=== PATIENT | male | born 1960 | race Caucasian/White ===

== ENCOUNTER 2017-03-04 15:15 | Observation (INO) ==
--- NOTE | 2017-03-04 15:44 | History & Physical Report ---
<Debora Puente V - Last Filed: 03/04/17 15:39> History of Present Illness Date: 03/04/17 Chief complaint: near-syncope HPI: Patient is a pleasant 57-year-old male who has a known history of non-small cell lung cancer with metastatic disease. He has been under the care of Dr. Mendoza and Dr Nupur Gerber for chemo and radiation. Today he was at the outpatient clinic receiving IV iron. This is his 2nd dose as he received an initial dose last . Following his transfusion of iron today he became hypotensive with a systolic blood pressure in the 90s. During this time he felt lightheaded and had a near syncopal episode (He denies having a LOC). He was given IV fluid 250 ML bolus, however, continued to be orthostatic. The hospitalist services will be contacted and accepted patient for outpatient admission for further evaluation and treatment. On arrival, initially. Patient was placed in inpatient status by registration staff. However, the intent is that patient is to be outpatient observation, and it is expected that his stay will be less than 2 overnights He did undergo outpatient laboratory studies earlier today as follows- WBC count 3.5, RBCs 3.38, hemoglobin 9.3, hematocrit 30.3, platelet count 108. Sodium is 143, potassium 4.0, BUN 20, creatinine 0.9. LFTs are normal. Patient does reveal that he had had a upper respiratory infection or cough as well as a fever on 02/23. He completed a course of Levaquin. He denies feeling feverish or chills. He denies having any pain, shortness of breath, chest pain, or GI complaints. We did discuss advanced directives and he does verbalize his wish to be a do not resuscitate Review of Systems Comprehensive ROS: completed and no additional positive findings except those as stated - Constitutional Constitutional: Present: fatigue PFSH Non-small cell lung cancer, squamous cell and metastatic disease. 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 Mendoza Senior Accountant Analyst-Dr. Cowan ([facility]) Exam - Constitutional Present: no acute distress - Routine HEENT Exam Head: Present: normocephalic, atraumatic Eye: Present: EOMI, PERRL ENT: Present: mucous membranes moist - Routine Neck Exam Present: supple, full ROM - Routine Respiratory Exam Present: CTA bilaterally - Routine Cardiovascular Exam Present: RRR, S1, S2, no murmur - Routine Abdominal Exam Present: soft, normoactive bowel sounds, non distended, non tender - Routine Extremities Exam Present: no edema, pulses intact, normal capillary refill - Routine Back/Spine/Pelvis Exam Back/Spine: Present: full ROM - Routine Skin Exam Present: intact, dry, warm - Routine Neurological Exam Present: alert, oriented X3, CN II-XII intact, moving all extremities, facial asymmetry, normal speech. Absent: sensory deficit, motor deficit - Routine Psychiatric Exam Present: normal affect, normal thought process Assessment and Plan (1) Near syncope Current visit: Yes Status: Acute (2) Iron deficiency anemia Current visit: Yes Status: Acute Resuscitation Status: Do Not Resuscitate Assessment and Plan: Impression Near syncopal episode Hypotension Recent upper respiratory congestion Iron deficiency anemia Non-small cell lung cancer with metastatic disease Former tobacco dependence Plan Admit patient to outpatient observation under the care of Dr. Licona for near syncopal episode with hypotension Did review outpatient labs from earlier today including CBC and CMP. Given recent upper respiratory infection/congestion, Will obtain a viral respiratory panel. Also obtain chest x-ray to rule out pulmonary infectious etiology. Obtain UA for laboratory completeness Given hypotension and her syncopal episode. Will be aggressive towards IV hydration. Give patient 1 liter of normal saline over 2 hours. Will then reevaluate and likely continue on maintenance fluids. Following initial IV fluid bolus, will have nursing staff obtain orthostatic vital signs. Obtain EKG on admission and monitor patient on cardiac telemetry to evaluate for any dysrhythmias. Patient may have a regular diet SCDs to bilateral lower extremity for DVT prophylaxis Once home medications have been reconciled. These will need to be evaluated and ordered accordingly. Will discuss further orders and plan of care with attending, Dr. Licona. At time of discharge medical care will return [place] [facility] Hospital Course Summary Disclaimer: The visit summary below is not to be considered part of the above Progress Note. Hospital Course: 03/04/17 Inital admission Impression Near syncopal episode Hypotension Recent upper respiratory congestion Iron deficiency anemia Non-small cell lung cancer with metastatic disease Former tobacco dependence Plan Admit patient to outpatient observation under the care of Dr. Licona for near syncopal episode with hypotension Did review outpatient labs from earlier today including CBC and CMP. Given recent upper respiratory infection/congestion, Will obtain a viral respiratory panel. Also obtain chest x-ray to rule out pulmonary infectious etiology. Obtain UA for laboratory completeness Given hypotension and her syncopal episode. Will be aggressive towards IV hydration. Give patient 1 liter of normal saline over 2 hours. Will then reevaluate and likely continue on maintenance fluids. Following initial IV fluid bolus, will have nursing staff obtain orthostatic vital signs. Obtain EKG on admission and monitor patient on cardiac telemetry to evaluate for any dysrhythmias. Patient may have a regular diet SCDs to bilateral lower extremity for DVT prophylaxis Once home medications have been reconciled. These will need to be evaluated and ordered accordingly. Will discuss further orders and plan of care with attending, Dr. Licona. At time of discharge medical care will return to his primary care provider in [place] [facility] <Bella Licona - Last Filed: 03/04/17 20:16> History of Present Illness Date: 03/04/17 [facility] Patient Stated Medical History Hypotension Yes: In the last three weeks Bronchitis Yes: hx Gastroesophageal Reflux Yes Disease Anemia Yes Blood Transfusions Yes Chemotherapy Yes Exam Vital Signs: Temperature 97.3 F 03/04/17 15:44 Pulse Rate 86 03/04/17 18:23 Respiratory Rate 16 03/04/17 15:44 Blood Pressure 117/65 03/04/17 18:23 Pulse Oximetry 96 03/04/17 15:44 Height/Weight/BMI: Height 1.78 m Weight 68.6 kg Body Mass Index 21.7 Assessment and Plan (1) Near syncope Current visit: Yes Status: Acute (2) Iron deficiency anemia Current visit: Yes Status: Acute Assessment and Plan: 03/04/2017-I reviewed this chart, the patient history, and the BUNCHER OPERATOR's/PA's documented findings as above. We discussed and formulated the assessment and plan as above with the additions below.-Dr. Licona The patient is a very pleasant 57-year-old male with history of metastatic non-small cell lung carcinoma. He has history of metastasis to the brain and had a seizure in April 2016. He has been on Keppra since that time and has had no further seizures. He states he has had stereotactic radiosurgrery treatments to the brain for this metastasis. He has also undergone chemotherapy and is currently undergoing radiation therapy to the chest. He has had difficulties with anemia chronically and was in the cancer Center today receiving his second round of infusion of IV iron. He stated this took a couple of hours and when he got up out of the chair to walk to radiation therapy he felt lightheaded and he was hypotensive. He was given 250 cc of normal saline in the clinic and then got up again to go to radiation therapy and was lightheaded again. We were asked to admit the patient for hypotension. The patient states that he has lightheadedness when he gets up to walk on occasion. He states that he always will sit down and then the symptoms will pass. He was not feeling lightheaded prior to his IV iron treatment. He states he has been eating and drinking well recently. He did have bronchitis a week ago but those symptoms are mostly resolved after a round of antibiotics. He has been eating and drinking fairly well, but states he should drink more. He has had no recent fevers, chills or sweats. His had no nausea, vomiting or diarrhea. He has had no bloody stools or black tarry stools. He denies any chest pains, palpitations or shortness of breath. On review of his medications, he is found to be on hydrocortisone 20 mg with breakfast and 15 mg with supper. He states that he has been on this dose since about August of this year and before that he was on Decadron. He does not know why he is on the hydrocortisone. The patient states he was on 2 rounds of Decadron which was initially started after his metastasis to the brain was diagnosed. I did talk with Dr. Menjivar, partner of the patient's oncologist Dr. Mendoza. He reviewed the patient's records and stated that he was concerned that he may have panhypopituitarism either from radiation treatment to the brain or from Keytruda. Comprehensive metabolic done prior to admission today was essentially normal. CBC revealed a white count of 3.5, hemoglobin 9.3, platelets of 108. His baseline hemoglobin has been 8.7-9.1 when tested here at the hospital. Vitals on arrival revealed a blood pressure of 103/65, pulse rate 92, O2 sat 96 % and temperature is 97.3 After 1 L of IV fluids supine blood pressure 114/67 with heart rate of 68. Sitting blood pressure 116/66 heart rate of 84. Standing blood pressure 117/65 with heart rate of 86. The patient was feeling better. On exam the patient is alert, oriented in no acute distress. HEENT reveals sclerae to be anicteric and pupils are equal round and reactive. Oropharynx is moist. He has upper dentures. Neck is supple without lymphadenopathy. Chest reveals some wheezing that is mild in the right base. Cardiovascular reveals a regular rate and rhythm. Abdomen is soft and nontender with positive bowel sounds. Extremities are free of edema. Skin is warm and dry and without rashes. Chest x-ray shows improving right lower lobe mass. Superimposed pneumonia cannot be entirely excluded in this location. EKG shows sinus rhythm with rate of 86 Lactate is 1.0. Troponin is normal. 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 Recheck CBC and renal panel in the morning Continue current hydrocortisone dose. Patient is currently asymptomatic after 1 L of fluid. Will consult Dr. Curry for evaluation for possible panhypopituitarism. We'll check a TSH, free T3 and free T4. Dr. Menjivar has requested an MRI with attention to the pituitary and I will order that for tomorrow The patient missed his radiation therapy today, will need to determine if he should undergo radiation tomorrow. We'll need to reevaluate patient and discuss with oncology. Hospital Course Summary Disclaimer: The visit summary below is not to be considered part of the above Progress Note.
[2017-03-04] MEDS ORDERED: NS 1,000 ML IV SCH (15:45)
--- NOTE | 2017-03-04 16:02 | XRay Report ---
INDICATION: recent URI with coughing PROCEDURE: CHEST 2-VIEWS UPRIGHT (PA & LAT) Encounter: Initial COMPARISON: CT dated February 23, 2017 FINDINGS: Interval improvement in the consolidative mass process in the medial right lower lobe with some residual consolidation remaining. Upper lung cedillo are grossly clear. No pleural effusion or pneumothorax. Stable linear scarring in the left lower lobe. Heart size and mediastinal contours are unchanged. Pulmonary vascularity appears normal. Impression: Improving right lower lobe mass process. Superimposed pneumonia cannot be entirely excluded in this location. .
[2017-03-04] MEDS ORDERED: DOCUSATE SODIUM 100 MG PO PRN (17:03)
[2017-03-04] MEDS ORDERED: IPRATROPIUM ORAL INH PRN (17:03)
[2017-03-04] MEDS ORDERED: ALBUTEROL ORAL INH PRN (17:03)
[2017-03-04 17:07] VITALS: BMI 21.7
[2017-03-04] MEDS: SALMETEROL ORAL INH SCH (19:16)
[2017-03-04] MEDS: FLUTICASONE ORAL INH SCH (19:16)
[2017-03-04] MEDS ORDERED: HYDROCORTISONE 10 MG TABLET PO SCH (20:00)
[2017-03-04] MEDS: NS 1,000 ML IV SCH (20:23)
[2017-03-04] MEDS: LEVETIRACETAM 500 MG PO SCH (20:24)
[2017-03-04] MEDS: NIFEREX FORTE PO SCH (20:25)
[2017-03-04] MEDS: GUAIFENESIN LA 600 MG TABLET PO SCH (20:25)
[2017-03-05] MEDS ORDERED: PANTOPRAZOLE 40 MG TABLET PO SCH (06:30)
[2017-03-05] MEDS ORDERED: HYDROCORTISONE 10 MG TABLET PO SCH (08:00)
[2017-03-05] MEDS: FLUTICASONE ORAL INH SCH (08:45)
[2017-03-05] MEDS: SALMETEROL ORAL INH SCH (08:45)
[2017-03-05] MEDS ORDERED: MULTI-VIT + MINERAL (Opti-gen) TABLET PO SCH (09:00)
[2017-03-05] MEDS ORDERED: ASCORBIC ACID 500 MG TABLET PO SCH (09:00)
[2017-03-05] MEDS ORDERED: FOLIC ACID 1 MG PO SCH (09:00)
[2017-03-05] MEDS ORDERED: CYANOCOBALAMIN (B-12) 500mcg TABLET PO SCH (09:00)
[2017-03-05] MEDS: GUAIFENESIN LA 600 MG TABLET PO SCH (09:24)
[2017-03-05] MEDS: LEVETIRACETAM 500 MG PO SCH (09:25)
[2017-03-05] MEDS: NIFEREX FORTE PO SCH (09:26)
[2017-03-05] MEDS ORDERED: ASCORBIC ACID 1000 MG PO SCH (09:30)
[2017-03-05] MEDS: NS 1,000 ML IV SCH (10:18)
[2017-03-05] MEDS ORDERED: SALINE FLUSH 10ml SYRINGE ONE (11:25)
[2017-03-05] MEDS ORDERED: NS 50 ML ONE (11:25)
[2017-03-05] MEDS ORDERED: GADOBUTROL 10mMol/10ml INJECTION IVP ONE (11:25)
--- NOTE | 2017-03-05 11:36 | Consultation ---
ENDOCRINE CONSULT DATE OF ADMISSION: 03/04/2017 DATE OF CONSULT: 03/05/2017 REASON FOR CONSULTATION Possible hypopituitarism. HISTORY OF PRESENT ILLNESS Mr. Mcgovern is a 57-year-old male with non-small cell lung cancer with metastatic disease to liver and brain. He is treated by Dr. Mendoza and Dr. English. On the day of admission he was receiving intravenous iron infusion. When he got up to walk to the radiation treatment, he had a near-syncopal episode. He was given 250 ml of normal saline but continued to have orthostatic changes, so he was admitted as an outpatient to [facility]. He reports that he was tapered down on dexamethasone and discontinued it two weeks ago. Since then he has been receiving hydrocortisone 20 mg q.a.m. and 15 mg q.p.m. There is some concern that he may have panhypopituitarism perhaps due to his cancer chemotherapy regimen. I do not have exactly what that is, but certainly hypophysitis can be a side effect of some of the drugs. He denies any nausea, diarrhea or abdominal pain. He has not noted if the orthostatic dizziness occurs more often when he has a meal although he has had milder episodes, not nearly as bad as the day of admission, prior to that. He has no known history of diabetes, thyroid disease, heart disease. He does have a history of low blood pressure and rapid pulse. FAMILY HISTORY Negative for any cancer, thyroid disease, DE, stroke or hypertension. SOCIAL HISTORY The patient does not smoke tobacco nor drink alcohol. ALLERGIES None known. REVIEW OF SYSTEMS Otherwise noncontributory. PHYSICAL EXAM GENERAL: Afebrile with stable vital signs this morning. HEENT: Normocephalic, atraumatic. Pupils equal, round and react to light. Oral mucosa is moist. NECK: Without thyromegaly or lymphadenopathy. LUNGS: Clear. HEART: Regular rate and rhythm without murmur. ABDOMEN: Normal bowel sounds. Soft without tenderness or organomegaly. EXTREMITIES: Without edema. SKIN: Warm and dry. NEUROLOGIC EXAM: Grossly normal. LABS 11 p.m. glucose 112. Sodium 142. Potassium 4.2. TSH 0.29. Free T4 0.87. Free T3 2.81. ASSESSMENT 1. Near-syncope, possibly due to significant orthostatic changes. This certainly could be due to adrenal insufficiency although he seems to be on a high-normal replacement dose of hydrocortisone now. 2. 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 We can screen him for most conditions but while he is taking hydrocortisone it will be impossible to check him for adrenal insufficiency. He would have to be off the hydrocortisone for at least 24-48 hours for us to get a meaningful ACTH stimulation test. While his TSH is low, he is maintaining a normal FT4 and FT3 so no supplementation is needed yet. 3. Iron deficiency anemia. RECOMMENDATIONS I have taken the liberty of ordering levels of prolactin, LH, FSH, testosterone and IGF-1. Apparently he has had low cortisol and ACTH levels at some point in the past, so he should be continued on maintenance steroids as he is currently receiving. Thank you very much for asking my assistance in caring for this nice gentleman. I will follow him along with you while he remains in the hospital. PRINCESS
--- NOTE | 2017-03-05 12:56 | Magnetic Resonance Report ---
Indication: brain mets, possible [place] hypo pit PROCEDURE: MR head/brain/pit wo/w c: Encounter: Initial Comparisons: Head CT dated January 04, 2017 Technique: Multiplanar, multisequence, MR imaging of the head with and without contrast was acquired. Special sequences were performed with attention to the pituitary gland with dynamic postcontrast imaging. Contrast: 7.5 mL of Gadavist FINDINGS: Pituitary: Pituitary gland volume is somewhat decreased without discrete nodule or mass. Pituitary stalk is midline. Optic chiasm appears normal. No hyper or hypoenhancing lesions seen on the dynamic postcontrast images. Brain: Areas of T2/FLAIR hyperintensity seen in both parietal lobes along with the right frontal lobe at sites of prior treated metastatic disease. The vasogenic edema in these areas has improved since the comparison CT. There is enhancement remaining in multiple locations. The largest area is a ring-enhancing lesion in the left parietal lobe on axial image #17 measuring 1.6 x 1.1 cm in diameter. Additional area of enhancing tumor in the previous the treated area in the right frontal lobe measuring 1.3 cm in diameter on axial image #22. Small area of enhancing tumor in the high right parietal lobe on axial image #23 measuring 1 cm in diameter. Small punctate focus of enhancement at the ngo-white interface of the left posterior frontal lobe along the precentral gyrus on image #22 measuring 0.5 cm in size. Suggestion of an additional tiny right frontal enhancing nodule on coronal image #20 measuring 3 mm in size. The ventricles are of normal size, shape, and contour for the patient's age. The brain stem, cerebellum, and cerebral hemispheres otherwise have a normal morphologic appearance as well as MR signal intensity on all pulse sequences. There are no areas of restricted diffusion to suggest an acute infarct. There is no evidence of an intracranial hemorrhage, or hydrocephalus. The visualized portions of the orbits, calvarium, paranasal sinuses, and skull base demonstrate no significant abnormality. Trace left mastoid effusion. IMPRESSION: 1. Mild pituitary atrophy, otherwise no focal pituitary abnormality. 2. Areas of treated metastatic disease with residual areas of enhancement suggesting active metastases. .
--- NOTE | 2017-03-05 15:24 | Progress Note ---
Subjective: F/U: Near syncope Doing okay today. Not feeling as weak and wobbly as yesterday. Report not out of bed much, but open for more activities. Notes slight cough/congestion but not having sputum, pain with breathing or feeling short of air. No chest pressure or discomfort. Eating well-food is appealing and tastes well. No nausea or ab pain. Not had bowel movement, but not bloated or uncomfortable to abdomen. Urinating well. No sinus congestion or drainage. Objective Vital signs: Temperature 99.8 F 03/05/17 13:19 Pulse Rate 99 03/05/17 13:19 Respiratory Rate 16 03/05/17 13:19 Blood Pressure 120/68 03/05/17 13:19 Pulse Oximetry 96 03/05/17 13:19 Oxygen Delivery Method Room Air Height/Weight/BMI: Height 1.78 m Weight 68.7 kg Body Mass Index 21.7 - Constitutional Present: no acute distress, well nourished, well developed, cooperative - Routine HEENT Exam Head: Present: normocephalic, atraumatic Eye: Present: EOMI, PERRL ENT: Present: mucous membranes moist - Routine Respiratory Exam Present: decreased breath sounds, distant breath sounds, diminished air movement. Absent: accessory muscle use, respiratory distress, rhonchi, wheezes , crackles - Routine Cardiovascular Exam Present: RRR, no murmur - Routine Abdominal Exam Present: soft, normoactive bowel sounds, non distended, non tender. Absent: rebound - Routine Extremities Exam Present: no edema. Absent: cyanosis, clubbing - Routine Musculoskeletal Exam Musculoskeletal: Present: no clubbing or cyanosis, normal strength - Routine Skin Exam Present: intact, dry, warm - Routine Neurological Exam Present: alert, CN II-XII intact, vision grossly intact, hearing grossly intact. Absent: motor deficit - Routine Psychiatric Exam Present: normal affect, normal thought process. 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 Dr Curry consulted. Not able to perform meaningful ACTH stimulation test as is on steroids (would need to be off 24-48 hours). While TSH low, Free T3 and T4 normal - not needing replacement at this time. Orders for prolactin, testosterone, FSH, LH, Insulin like GR-1, and IGF I Z- score pending (send out). Patient did ambulate well with nursing. BP and HR stable. Oral intake doing well. With patient's improvement, can discharge to home. Potential for panhypopituitarism still a concern - will need to follow up with Dr Curry for further evaluation. Continue outpatient radiation and chemo as prior to presentation. See orders for details Case discussed with nursing and Dr Menjivar. Time spent with patient's care and discharge greater than 30 minutes. Sepsis Assessment - Evaluation Sepsis screening result: No Definite Risk Hospital Course Summary Disclaimer: The visit summary below is not to be considered part of the above Progress Note. Hospital Course: 03/04/17 Inital admission Impression Near syncopal episode Hypotension Recent upper respiratory congestion Iron deficiency anemia Non-small cell lung cancer with metastatic disease Former tobacco dependence Plan Admit patient to outpatient observation under the care of Dr. Licona for near syncopal episode with hypotension Did review outpatient labs from earlier today including CBC and CMP. Given recent upper respiratory infection/congestion, Will obtain a viral respiratory panel. Also obtain chest x-ray to rule out pulmonary infectious etiology. Obtain UA for laboratory completeness Given hypotension and her syncopal episode. Will be aggressive towards IV hydration. Give patient 1 liter of normal saline over 2 hours. Will then reevaluate and likely continue on maintenance fluids. Following initial IV fluid bolus, will have nursing staff obtain orthostatic vital signs. Obtain EKG on admission and monitor patient on cardiac telemetry to evaluate for any dysrhythmias. Patient may have a regular diet SCDs to bilateral lower extremity for DVT prophylaxis Once home medications have been reconciled. These will need to be evaluated and ordered accordingly. Will discuss further orders and plan of care with attending, Dr. Licona. At time of discharge medical care will return to his primary care provider in [place] at [facility] 03/05/17 MRI performed showing mild pituitary atrophy. Dr Curry consulted. Not able to perform meaningful ACTH stimulation test as is on steroids (would need to be off 24-48 hours). While TSH low, Free T3 and T4 normal - not needing replacement at this time. Orders for prolactin, testosterone, FSH, LH, Insulin like GR-1, and IGF I Z- score pending (send out). Patient did ambulate well with nursing. BP and HR stable. Oral intake doing well. With patient's improvement, can discharge to home. Potential for panhypopituitarism still a concern - will need to follow up with Dr Curry for further evaluation. Continue outpatient radiation and chemo as prior to presentation. See orders for details
[2017-03-05 15:41] VITALS: RESP 18
--- NOTE | 2017-03-05 15:51 | Discharge Summary ---
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 Associated conditions and complications Hypotension - resolved Iron deficiency Anemia Pancytopenia Chronic hydrocortisone use without known official workup Metastatic non-small cell lung cancer-undergoing radiation treatment 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 Pituitary stalk is midline. Optic chiasm appears normal. No hyper or hypoenhancing lesions seen on the dynamic postcontrast images. Brain: Areas of T2/FLAIR hyperintensity seen in both parietal lobes along with the right frontal lobe at sites of prior treated metastatic disease. The vasogenic edema in these areas has improved since the comparison CT. There is enhancement remaining in multiple locations. The largest area is a ring- enhancing lesion in the left parietal lobe on axial image #17 measuring 1.6 x 1.1 cm in diameter. Additional area of enhancing tumor in the previous the treated area in the right frontal lobe measuring 1.3 cm in diameter on axial image #22. Small area of enhancing tumor in the high right parietal lobe on axial image #23 measuring 1 cm in diameter. Small punctate focus of enhancement at the ngo-white interface of the left posterior frontal lobe along the precentral gyrus on image #22 measuring 0.5 cm in size. Suggestion of an additional tiny right frontal enhancing nodule on coronal image #20 measuring 3 mm in size. The ventricles are of normal size, shape, and contour for the patient's age. The brain stem, cerebellum, and cerebral hemispheres otherwise have a normal morphologic appearance as well as MR signal intensity on all pulse sequences. There are no areas of restricted diffusion to suggest an acute infarct. There is no evidence of an intracranial hemorrhage, or hydrocephalus. The visualized portions of the orbits, calvarium, paranasal sinuses, and skull base demonstrate no significant abnormality. Trace left mastoid effusion. IMPRESSION: 1. Mild pituitary atrophy, otherwise no focal pituitary abnormality. 2. Areas of treated metastatic disease with residual areas of enhancement suggesting active metastases. History of Present Illness HPI: Patient is a pleasant 57-year-old male who has a known history of non-small cell lung cancer with metastatic disease. He has been under the care of Dr. Mendoza and Dr Nupur Gerber for chemo and radiation. Today he was at the outpatient clinic receiving IV iron. This is his 2nd dose as he received an initial dose last . Following his transfusion of iron today he became hypotensive with a systolic blood pressure in the 90s. During this time he felt lightheaded and had a near syncopal episode (He denies having a LOC). He was given IV fluid 250 ML bolus, however, continued to be orthostatic. The hospitalist services will be contacted and accepted patient for outpatient admission for further evaluation and treatment. On arrival, initially. Patient was placed in inpatient status by registration staff. However, the intent is that patient is to be outpatient observation, and it is expected that his stay will be less than 2 overnights He did undergo outpatient laboratory studies earlier today as follows- WBC count 3.5, RBCs 3.38, hemoglobin 9.3, hematocrit 30.3, platelet count 108. Sodium is 143, potassium 4.0, BUN 20, creatinine 0.9. LFTs are normal. Patient does reveal that he had had a upper respiratory infection or cough as well as a fever on 02/23. He completed a course of Levaquin. He denies feeling feverish or chills. He denies having any pain, shortness of breath, chest pain, or GI complaints. We did discuss advanced directives and he does verbalize his wish to be a do not resuscitate For complete details of the H&P refer to that document. Objective Vital signs: Temperature 99.7 F 03/05/17 15:41 Pulse Rate 95 03/05/17 15:41 Respiratory Rate 18 03/05/17 15:41 Blood Pressure 100/64 03/05/17 15:41 Pulse Oximetry 94 03/05/17 15:41 Oxygen Delivery Method Room Air Height/Weight/BMI: Height 1.78 m Weight 68.7 kg Body Mass Index 21.7 Hospital Course This is a general summary of the patient's hospital course. For more details refer to the complete medical record. Hospital course: 03/04/17 Inital admission Impression Near syncopal episode Hypotension Recent upper respiratory congestion Iron deficiency anemia Non-small cell lung cancer with metastatic disease Former tobacco dependence Plan Admit patient to outpatient observation under the care of Dr. Licona for near syncopal episode with hypotension Did review outpatient labs from earlier today including CBC and CMP. Given recent upper respiratory infection/congestion, Will obtain a viral respiratory panel. Also obtain chest x-ray to rule out pulmonary infectious etiology. Obtain UA for laboratory completeness Given hypotension and her syncopal episode. Will be aggressive towards IV hydration. Give patient 1 liter of normal saline over 2 hours. Will then reevaluate and likely continue on maintenance fluids. Following initial IV fluid bolus, will have nursing staff obtain orthostatic vital signs. Obtain EKG on admission and monitor patient on cardiac telemetry to evaluate for any dysrhythmias. Patient may have a regular diet SCDs to bilateral lower extremity for DVT prophylaxis Once home medications have been reconciled. These will need to be evaluated and ordered accordingly. Will discuss further orders and plan of care with attending, Dr. Licona. At time of discharge medical care will return to his [place] [facility] 03/05/17 MRI performed showing mild pituitary atrophy. Dr Curry consulted. Not able to perform meaningful ACTH stimulation test as is on steroids (would need to be off 24-48 hours). While TSH low, Free T3 and T4 normal - not needing replacement at this time. Orders for prolactin, testosterone, FSH, LH, Insulin like GR-1, and IGF I Z- score pending (send out). Patient did ambulate well with nursing. BP and HR stable. Oral intake doing well. With patient's improvement, can discharge to home. Potential for panhypopituitarism still a concern - will need to follow up with Dr Curry for further evaluation. Continue outpatient radiation and chemo as prior to presentation. See orders for details Time spent with patient: discharge greater than 30 minutes DVT Prophylaxis: SCD's Discharge Plan - Med Rec/Dispo Referrals/Follow Up: Anshu Curry MD [Physician] - (1-2 weeks for further evaluation of potential panhypopit. Review of pending lab (FSH, LH, Testosterone, Insulin like GF-1, IGF I Z-score). Possible outpatient ACTH simulation testing (pt is on steroids) . ) Mitchell Mendoza MD [Physician] - (As schedules for oncology care. ) Yumi Vickers PA [Family Provider] - 1 Week (Medical evaluation and hospital F/U for hypotension. ) Prescriptions: Continue Folic Acid [Folate] 1 mg PO DAILY Iron Ps Cmplx/Vit B12/FA [Iferex 150 Forte Capsule] 1 cap PO BID Cyanocobalamin (Vitamin B-12) [Vitamin B-12] 500 mcg PO DAILY Cholecalciferol (Vitamin D3) [Vitamin D3] 400 unit PO DAILY guaiFENesin [Guaifenesin ER] 1,200 mg PO Q12H Hydrocortisone 15 mg PO PM Hydrocortisone 20 mg PO AM Docusate Sodium [Colace] 1 cap PO BID PRN PRN Reason: Constipation Ipratropium/Albuterol [Combivent Respimat Inhaler] 1 - 2 puff INH Q4-6HPRN PRN PRN Reason: Cough Fluticasone/Salmeterol 100/50 [Advair 100-50 Diskus] 1 puff INH BID PRN PRN Reason: Shortness Of Air/Wheezing Levetiracetam [Keppra] 500 mg PO BID Ascorbic Acid [Vitamin C] 500 mg PO BID Lansoprazole [Prevacid] 30 mg PO DAILY Multivit-Minerals/FA/Lycopene [One Daily Men's Health Tablet] 1 tab PO DAILY Discharge Instructions/Outpatient Orders: Final Provider Discharge Instructions Location: Determined By Patient - Disposition 01 Discharged Home, Self-Care - Attestation Attestation Narrative: 03/05/17 16:02 I have independently interviewed and examined patient prior to discharge. See my progress not from today for details. Medically stable for discharge to home.
[2017-03-05 18:17] VITALS: BP 113/62; PULSE 95; TEMP 99.1; O2SAT 97
== END 2017-03-05 16:55 | disposition home or self-care (01) ==
LOC: INTOOBSV 15:15 → MED 15:31
PROVIDERS: ADMIT Internal Medicine; ATTEND Internal Medicine